=== PATIENT | female | born 1970 | race American Indian/Alaskan Native ===

== ENCOUNTER 2016-11-21 15:38 | Outpatient (CLI) | payer OTHER ==
--- NOTE | 2016-11-23 09:12 | Mammography Report ---
BILATERAL DIGITAL SCREENING MAMMOGRAM with CAD: 11/21/16 15:38:00 CLINICAL: Routine screening. COMPARISON:10/15/14 FINDINGS: The breasts are heterogeneously dense, which may obscure small masses. No mass, architectural distortion or suspicious calcifications. IMPRESSION: No mammographic evidence of malignancy. BI-RADS CATEGORY: 1 - - Negative RECOMMENDATION: Routine mammographic screening in one year. COMMENT: Patient follow-up letters are generated by our [employer] application.
== END 2016-11-21 15:39 | disposition home or self-care (01) ==
LOC: SPVWC 15:38
PROVIDERS: ATTEND Internal Medicine
DX: Z12.31 Encounter for screening mammogram for malignant neoplasm of breast (principal)
CPT/HCPCS: 77067; G0202

== ENCOUNTER 2020-05-26 11:11 | Outpatient (CLI) | payer OTHER ==
--- NOTE | 2020-05-27 09:35 | Mammography Report ---
DIGITAL SCREENING MAMMOGRAM WITH CAD, 05/27/2020 CLINICAL INFORMATION / INDICATION: Routine screening mammography. TECHNIQUE: Digital bilateral 2D mammography was obtained in the craniocaudal and mediolateral obliqu e projections. This examination was interpreted with the benefit of Computer-Aided Detection analysis . COMPARISON: 11/21/2016 FINDINGS: Breast Density: There are scattered areas of fibroglandular density. No dominant mass, suspicious calcifications, or architectural distortion in either breast. No interval change. IMPRESSION: No mammographic evidence of malignancy. Follow up recommendation: Routine yearly BI-RADS Category 1: Negative. A "normal" or negative report should not discourage follow up or biopsy of a clinically significant f inding. A written summary of these findings will be mailed to the patient. The patient will be entered into a mammography reporting system which will generate a reminder letter for the patient's next appointmen t at the appropriate interval. The [employer] recommends yearly mammograms starting at age 40 and continuing as l xin as a woman is in good health. Breast MRI is recommended for women with an approximate 20-25% or greater lifetime risk of breast cancer, including women with a strong family history of breast or ova shaun cancer or who have been treated for Hodgkin's disease. Signer Name: Farzaneh Beltran MD Signed: 05/27/2020 9:30 AM Workstation Name: [id number]
== END 2020-05-26 11:12 | disposition home or self-care (01) ==
LOC: SPVWC 11:11
PROVIDERS: ATTEND Internal Medicine
DX: Z12.31 Encounter for screening mammogram for malignant neoplasm of breast (principal); N64.89 Other specified disorders of breast
CPT/HCPCS: 77067